=== PATIENT | male | born 1975 | race African-American/Black ===

== ENCOUNTER 2017-04-14 22:19 | Emergency (ER) | payer SELFPAY ==
[~2017-04-14 22:19] MED LIST: CIPRO PO; NO MEDICATIONS; PYRIDIUM PO
[2017-04-14] MEDS ORDERED: ZANTAC150 M1 PO (23:13)
== END 2017-04-14 23:16 | disposition home or self-care (01) ==
LOC: SED 22:19
DX: R10.13 Epigastric pain (principal); Z88.1 Allergy status to other antibiotic agents; Z87.442 Personal history of urinary calculi; Z79.899 Other long term (current) drug therapy
CPT/HCPCS: 99283